=== PATIENT | male | born 1995 | race Caucasian/White ===

== ENCOUNTER 2025-03-03 21:43 | Emergency (ER) | payer SELFPAY ==
[2025-03-03 22:03] VITALS: BP 128/86; PULSE 94; TEMP 36.7; O2SAT 97; BMI 21.6
--- NOTE | 2025-03-03 23:24 | ED.EXTPRO1 ---
HPI - Extremity Problem General Chief complaint: Extremity Problem, Nontraumatic Stated complaint: LEFT LEG PAIN START AT KNEE/ NOW BY THIGH Time Seen by Provider: 03/03/25 23:20 Source: patient Mode of arrival: walk-in Limitations: no limitations History of Present Illness HPI Narrative: complains of left thigh pain. No injury. hurts to walk. Does not recall stumbling. describes sharp pain. No numbness or weakness Review of Systems ROS Status of ROS 10 or more systems reviewed and unremarkable except as noted in history and below PFSH PFSH Social History Little interest or pleasure in doing things: not at all Feeling down, depressed, or hopeless: not at all Exam Constitutional Vital Signs, click to edit/add: Last Vital Signs Temp 98.1 F 03/03/25 22:03 Pulse 94 H 03/03/25 22:03 Resp 18 03/03/25 22:03 BP 128/86 03/03/25 22:03 Pulse Ox 97 03/03/25 22:03 O2 Del Method Room Air 03/03/25 22:03 Common normals: no apparent distress, average body habitus, oriented x3, no limitations, healthy appearing, alert and well nourished [facility] Common normals: normocephalic and head/scalp atraumatic Eye Common normals: PERRL, EOMs intact bilaterally and conjunctivae normal Respiratory Common normals: normal respiratory effort, no retractions, no use of accessory muscles and clear to auscultation bilaterally Cardio Common normals: regular rate, regular rhythm, S1 normal heart sound and S2 normal heart sound Extremity Extremity image (front):  1. focal tenderness. No induration or swelling Neuro Common normals: oriented x3, CN's II-XII intact bilaterally, moves all extremities and no focal motor deficits Psych Appearance: grossly normal Course Vital Signs Vital signs: Vital Signs Temperature 98.1 F 03/03/25 22:03 Pulse Rate 94 H 03/03/25 22:03 Respiratory Rate 18 03/03/25 22:03 Blood Pressure 128/86 03/03/25 22:03 Pulse Oximetry 97 03/03/25 22:03 Oxygen Delivery Method Room Air 03/03/25 22:03 Temperature 98.1 F 03/03/25 22:03 Pulse Rate 94 H 03/03/25 22:03 Respiratory Rate 18 03/03/25 22:03 Blood Pressure 128/86 03/03/25 22:03 Pulse Oximetry 97 03/03/25 22:03 Oxygen Delivery Method Room Air 03/03/25 22:03 MDM - Extremity (Nontraumatic) MDM Narrative Medical decision making narrative: patient presents with pain left thigh without known injury. Has mild tenderness of the left quad musculature but no abnormalities otherwise. Lab neg including myoglobin and inflammatory markers. Patient discharged home with working diagnosis of myalgia and is to follow up with his doctor Lab Data Labs: Lab Results 03/03/25 Range/Units 23:43 WBC 7.3 (4.0-11.0) 10^3/uL RBC 5.57 (4.70-6.10) 10^6/uL Hgb 16.3 (14.0-18.0) g/dL Hct 47.0 (42.0-54.0) % MCV 84.4 (80.0-94.0) fL MCH 29.3 (25.9-34.0) pg MCHC 34.7 (29.9-35.2) g/dL RDW 12.5 (11.0-15.0) % Plt Count 220 (150-450) 10^3/uL MPV 10.2 (9.5-13.5) fL Neut % (Auto) 65.2 (43.0-75.0) % Lymph % (Auto) 24.8 (20.5-60.0) % [place] % (Auto) 7.0 (1.7-12.0) % Eos % (Auto) 2.1 (0.9-7.0) % Baso % (Auto) 0.8 (0.2-2.0) % Neut # (Auto) 4.7 (1.4-6.5) 10^3/uL Lymph # (Auto) 1.8 (1.2-3.8) 10^3/uL [place] # (Auto) 0.5 (0.3-0.8) 10^3/uL Eos # (Auto) 0.2 (0.0-0.7) 10^3/uL Baso # (Auto) 0.1 (0.0-0.1) 10^3/uL Abs Immat Gran (auto) 0.01 (0.00-0.03) 10^3/uL Imm/Tot Granulo (auto) 0.1 (0.0-0.5) % Sodium 141 (136-145) mmol/L Potassium 3.8 (3.5-5.1) mmol/L Chloride 105 (98-107) mmol/L Carbon Dioxide 30.4 (21.0-32.0) mmol/L Anion Gap 9.4 BUN 11.0 (7.0-18.0) mg/dL Creatinine 0.84 (0.70-1.30) mg/dL Est GFR ( Amer) >60 (>=60 mL/min/1.73m^2) Est GFR (Non-Af Amer) >60 (>=60 mL/min/1.73m^2) BUN/Creatinine Ratio 13.1 Glucose 109 H (74-106) mg/dL Calcium 9.6 (8.5-10.1) mg/dL Total Bilirubin 0.4 (0.2-1.0) mg/dL AST 18 (15-37) U/L ALT 34 (16-63) U/L Alkaline Phosphatase 57 (46-116) U/L Myoglobin 23 (16-96) ng/mL C-Reactive Protein <0.50 (<=0.50) mg/dL Total Protein 8.2 (6.4-8.2) g/dL Albumin 4.5 (3.4-5.0) g/dL Globulin 3.7 g/dL Albumin/Globulin Ratio 1.2 Discharge Plan Discharge Chief Complaint: Extremity Problem, Nontraumatic Clinical Impression: Myalgia Patient Disposition: Home, Self-Care Print Language: Pashto Instructions: Musculoskeletal Pain (ED) Additional Instructions: use ibuprofen or similar for pain and follow up with your doctor this week for recheck Referrals: MARIO VILLALBA [Primary Care Provider, Family Practice] - 1 week
[2025-03-04 00:14] LABS: Hematocrit 47.0 % (42.0-54.0); Hemoglobin 16.3 g/dL (14.0-18.0); Immature Granulocytes Abs Auto 0.01 10^3/uL (0.00-0.03); Immature Granulocytes Pct Auto 0.1 % (0.0-0.5); Lymphocytes Absolute Auto 1.8 10^3/uL (1.2-3.8); Mean Corpuscular HGB Conc 34.7 g/dL (29.9-35.2); Mean Corpuscular Hemoglobin 29.3 pg (25.9-34.0); Mean Corpuscular Volume 84.4 fL (80.0-94.0); Platelet Count 220 10^3/uL (150-450); Red Blood Count 5.57 10^6/uL (4.70-6.10); White Blood Count 7.3 10^3/uL (4.0-11.0)
[2025-03-04 00:23] LABS: Alanine Aminotransferase 34 U/L (16-63); Albumin Globulin Ratio 1.2; Albumin Level 4.5 g/dL (3.4-5.0); Alkaline Phosphatase 57 U/L (46-116); Anion Gap 9.4; Aspartate Amino Transferase 18 U/L (15-37); Blood Urea Nitrogen 11.0 mg/dL (7.0-18.0); Calcium 9.6 mg/dL (8.5-10.1); Carbon Dioxide 30.4 mmol/L (21.0-32.0); Chloride 105 mmol/L (98-107); Estimated GFR (African America >60 (>=60 mL/min/1.73m^2); Estimated GFR (Non-African Ame >60 (>=60 mL/min/1.73m^2); Globulin 3.7 g/dL; Glucose 109 mg/dL (74-106); Potassium 3.8 mmol/L (3.5-5.1); Sodium 141 mmol/L (136-145); Total Protein 8.2 g/dL (6.4-8.2)
== END 2025-03-04 00:42 | disposition home or self-care (01) ==
PROVIDERS: Emergency Provider Internal Medicine; PCP Family Medicine
DX: M79.18 Myalgia, other site (principal)
CPT/HCPCS: 36415; 80053; 83874; 85025; 86140; 99285

== ENCOUNTER 2025-03-05 19:26 | Emergency (ER) | payer SELFPAY ==
[2025-03-05 19:32] VITALS: BP 147/97; PULSE 103; TEMP 36.8; O2SAT 98; BMI 21.6
--- NOTE | 2025-03-05 20:56 | ED_ITS ---
HPI - Extremity Problem General Chief complaint: Extremity Problem, Nontraumatic Stated complaint: PAIN IN KNEE AND CALF Time Seen by Provider: 03/05/25 19:34 Source: patient Mode of arrival: walk-in Limitations: no limitations History of Present Illness HPI Narrative: Patient is a 29-year-old male presenting for a second ED visit for left leg pain. He was seen two days ago for pain in the left upper leg (quad) and was diagnosed with a muscle strain after negative lab work including CK and myoglobin. Today, he reports the pain has shifted to the medial left calf and behind the knee. He describes the pain as sharp, present at rest, and worse with movement. He denies numbness, tingling, weakness, swelling, redness, recent injury, or fever. He works long hours standing on his feet. Patient expresses concern for DVT. Related Data Home Medications ?Medication ?Instructions ?Recorded ?Confirmed No Known Home Medications 03/05/2502/11 Allergies Allergy/AdvReac Type Severity Reaction Status Date / Time No Known Drug Allergies Allergy Verified 03/05/25 19:32 PFSH PFSH Social History Little interest or pleasure in doing things: not at all Feeling down, depressed, or hopeless: not at all Exam Narrative Exam Narrative: Exam: * General: Alert, oriented ?3, no acute distress. * Extremities: Palpable tenderness behind the left knee and medial calf. Full range of motion. No swelling, erythema, or palpable cords. No calf asymmetry. Special test including anterior drawer, Ismael's, valgus and varus stress test are negative for any ligamentous involvement. The patellar tendon and Achilles tendon are intact with good strength and no crepitus. * Vascular: Distal pulses equal and symmetric bilaterally, capillary refill <2 seconds. * Neuro: Normal strength and sensation in lower extremities. * Skin: No rash, no discoloration. Vital Signs: Stable. Constitutional Vital Signs, click to edit/add: Last Vital Signs Temp 98.3 F 03/05/25 19:32 Pulse 103 H 03/05/25 19:32 Resp 14 03/05/25 19:32 BP 147/97 H 03/05/25 19:32 Pulse Ox 98 03/05/25 19:32 O2 Del Method Room Air 03/05/25 19:32 Course Vital Signs Vital signs: Vital Signs Temperature 98.3 F 03/05/25 19:32 Pulse Rate 103 H 03/05/25 19:32 Respiratory Rate 14 03/05/25 19:32 Blood Pressure 147/97 H 03/05/25 19:32 Pulse Oximetry 98 03/05/25 19:32 Oxygen Delivery Method Room Air 03/05/25 19:32 Temperature 98.3 F 03/05/25 19:32 Pulse Rate 103 H 03/05/25 19:32 Respiratory Rate 14 03/05/25 19:32 Blood Pressure 147/97 H 03/05/25 19:32 Pulse Oximetry 98 03/05/25 19:32 Oxygen Delivery Method Room Air 03/05/25 19:32 MDM - Extremity (Nontraumatic) MDM Narrative Medical decision making narrative: Diagnostics: * Venous duplex ultrasound of left lower extremity: Negative for DVT. MDM: This is a patient with persistent left leg pain, now localized to the posterior knee and medial calf. No clinical evidence of DVT (negative duplex study, no swelling, no risk factors). Labs earlier this week were normal. Symptoms and exam are most consistent with musculoskeletal strain or overuse injury. Differential: * Muscle strain/overuse injury ? most likely given tenderness on palpation, normal labs, and negative imaging * DVT ? ruled out by negative duplex * Yang?s cyst or popliteal cyst (no swelling or palpable mass) * Meniscal injury (no mechanical symptoms or knee effusion) * Cellulitis (no erythema, warmth, or systemic symptoms) Plan: * Continue conservative management: rest, ice, elevation as needed. * NSAIDs or acetaminophen for pain control as tolerated. * Encourage stretching and gradual return to activity. * Follow-up with primary care if not improving within 7?10 days. * Return to ED for swelling, redness, inability to walk, chest pain, or shortn ess of breath. * Patient was given a copy of his DVT results * * Discharge Plan Discharge Chief Complaint: Extremity Problem, Nontraumatic Clinical Impression: Strain of gastrocnemius muscle of left lower extremity Patient Disposition: Home, Self-Care Time of Disposition Decision: 21:00 Condition: Good Prescriptions / Home Meds: No Action No Known Home Medications Print Language: Tajik Additional Instructions: Diagnosis: Left leg pain ? likely muscle strain/overuse What This Means: Your ultrasound today did not show a blood clot (DVT). Your symptoms are most likely from a muscle strain or overuse injury. These injuries often take 1?2 weeks to improve. What You Can Do at Home: * Rest the leg as much as possible over the next few days. * Ice the area 15?20 minutes at a time, several times per day. * Elevate your leg when resting to help reduce discomfort. * You may take [id number] pain medication (ibuprofen or acetaminophen) if allowed by your doctor. * Gentle stretching can help as the pain improves. Follow-Up: * See your primary care provider if symptoms persist beyond 7?10 days. When to Return to the ER: * New or worsening swelling, redness, or warmth in the leg * Severe pain or inability to move the leg * Chest pain, shortness of breath, coughing up blood, or feeling faint Referrals: MARIO VILLALBA [Primary Care Provider, Family Practice] - 1 week
== END 2025-03-05 21:09 | disposition home or self-care (01) ==
PROVIDERS: Emergency Provider Emergency Medicine; PCP Family Medicine
DX: S76.812A Strain of other specified muscles, fascia and tendons at thigh level, left thigh, initial encounter (principal); X58.XXXA Exposure to other specified factors, initial encounter
CPT/HCPCS: 93971; 99285